=== PATIENT | female | born 1930 | race Caucasian/White ===

== ENCOUNTER → 2017-02-13 | Outpatient (CLI) | payer MEDICARE, BC ==
[~2017-02-13] MED LIST: AMBIEN5 MG PO; CENTRUM SILVER1 TAB PO; COLACE100 MG PO; COMPAZINE10 MG PO; COUMADIN2.5 MG PO; COUMADIN5 MG PO; FISH OIL 1,0001 EACH PO; LOPRESSOR50 MG PO; MIRALAX17 GM PO; OSCAL500 MG PO; OXYCONTIN EXTEN20 MG PO; PERCOCET 5-3251 EACH PO; SENNA8.6 MG PO; THERA-VITE W/ B1 TAB PO; TYLENOL325 MG PO; VITAMIN C1000 MG PO; VITAMIN D1000 UNIT PO; VITAMIN E100 UNI1 PO; ZOFRAN ODT 4 MG4 MG PO; [UNRECOGNIZED DRUG - REMARK] PO
== END | disposition disaster alternative care site (69) ==
LOC: GRAD 11:00
DX: C79.51 Secondary malignant neoplasm of bone (principal); R07.81 Pleurodynia; C50.311 Malignant neoplasm of lower-inner quadrant of right female breast; C78.2 Secondary malignant neoplasm of pleura; G62.0 Drug-induced polyneuropathy; D70.2 Other drug-induced agranulocytosis; H83.03 Labyrinthitis, bilateral
CPT/HCPCS: A9503